=== PATIENT | female | born 1980 | race Caucasian/White ===

== ENCOUNTER 2022-03-02 11:04 | Emergency (ER) | payer SELFPAY ==
[2022-03-02 11:59] VITALS: BMI 31.8
[2022-03-02] MEDS ORDERED: morphine CARPU-JECT 4 MG/1 ML DISP.SYRIN IVPUSH ONE ×2 (12:22→17:02)
[2022-03-02] MEDS ORDERED: morphine SULFATE 4 MG/ML VIAL ONE ×2 (13:03→17:29)
[2022-03-02 13:27] LABS: BASO % 0.7 % (0-2.0); EOS % 0.9 % (0-4.5); HEMATOCRIT 41.6 % (32.4-45.2); HEMOGLOBIN 13.9 GM/dL (10.7-15.3); LYMPH % 21.1 % (8-40); MCH 30.2 pg (25.7-33.7); MCHC 33.3 g/dl (32.0-36.0); MEAN CELL VOLUME 90.6 fl (80-96); MEAN PLT VOLUME 11.8 fl (7.5-11.1); MONO % 6.3 % (3.8-10.2); PLATELET COUNT 193 10^3/uL (134-434); RBC 4.59 M/mm3 (3.60-5.2); RDW 13.1 % (11.6-15.6); WHITE BLOOD COUNT 11.2 K/mm3 (4.0-10.0)
[2022-03-02 13:43] LABS: ALBUMIN 3.9 g/dl (3.4-5.0); BLOOD UREA NITROGEN 23.3 mg/dL (7-18); CALCIUM 9.4 mg/dL (8.5-10.1)
[2022-03-02 13:46] LABS: CREATININE 0.6 mg/dL (0.55-1.3)
[2022-03-02 13:48] LABS: BILIRUBIN,TOTAL 0.8 mg/dL (0.2-1); TOT PROT 7.9 g/dl (6.4-8.2)
[2022-03-02] MEDS ORDERED: SODIUM CHLORIDE 0.9% 500 ML INFUS.BAG IV ONE (17:28)
[2022-03-02] MEDS ORDERED: CIPROFLOXACIN 500 MG TABLET (RESTRICTED TO ID) PO ONE (17:28)
[2022-03-02] MEDS ORDERED: metroNIDAZOLE 250 MG TABLET PO ONE (17:32)
[2022-03-02] MEDS ORDERED: metroNIDAZOLE 250 MG TABLET ONE (17:51)
[2022-03-02] MEDS ORDERED: ONDANSETRON 4 MG/2 ML VIAL IVPUSH ONE (18:08)
[2022-03-02] MEDS ORDERED: ONDANSETRON 4 MG/2 ML VIAL ONE (18:47)
[2022-03-02 19:35] VITALS: BP 114/77; PULSE 77; RESP 16; TEMP 98.7
== END 2022-03-02 19:35 | disposition home or self-care (01) ==
LOC: JER 11:04
PROC: 3E033NZ Introduction of Analgesics, Hypnotics, Sedatives into Peripheral Vein, Percutaneous Approach (ICD-10-PCS; principal; 2022-03-02)
PROC: 3E033GC Introduction of Other Therapeutic Substance into Peripheral Vein, Percutaneous Approach (ICD-10-PCS; 2022-03-02)
PROC: 3E033GC Introduction of Other Therapeutic Substance into Peripheral Vein, Percutaneous Approach (ICD-10-PCS; 2022-03-02)
DX: K57.92 Diverticulitis of intestine, part unspecified, without perforation or abscess without bleeding (principal)
CPT/HCPCS: 36415; 74177-TC; 80053; 83605; 85025; 86850; 86900; 86901; 93005; 93010; 99285-25